=== PATIENT | female | born 1950 ===

== ENCOUNTER 2021-11-26 05:54 | Inpatient (IN) | payer MEDICARE ==
[2021-11-26] VITALS (7 sets, daily range): BP systolic 97–116; BP diastolic 52–78
[~2021-11-26] VITALS: Ht 152.4 cm; Wt 74.5 kg
[2021-11-26 07:06] LABS: BASO % 0.3 % (0.0-1.0); EOS # 0.1 10*3/uL (0.0-0.4); EOS % 1.6 % (1.0-4.0); HEMATOCRIT 45.6 % (37.0-47.0); LYMPH % 16.6 % (27.0-41.0); MEAN CELL VOLUME 94.2 fl (81.0-99.0); MEAN CORPUSCULAR HGB 31.4 pg (27.0-31.0); MEAN CORPUSCULAR HGB CONC 33.3 g/dl (33.0-37.0); MEAN PLATELET VOLUME 9.8 fl (9.6-12.3); MONO # 0.3 10*3/uL (0.1-1.0); MONO % 4.6 % (3.0-9.0); NEUT # 4.8 10*3/uL (2.3-7.9); NEUT % 76.7 % (47.0-73.0); PLATELET COUNT AUTOMATED 278 10*3/uL (130-400); RED BLOOD COUNT 4.84 10*6/uL (4.10-5.10); RED CELL DISTRI WIDTH 14.1 % (0-14.5); WHITE BLOOD COUNT 6.3 10*3/uL (4.8-10.8)
[2021-11-26 07:36] LABS: ALKALINE PHOSPHATASE 53 U/L (45-117); BUN 29 mg/dl (7-24); CHLORIDE 107 mmol/L (98-107); CREATININE 0.77 mg/dL (0.55-1.02); POTASSIUM 3.7 mmol/L (3.5-5.1); SGOT/AST 18 IU/L (3-35); SGPT/ALT 21 U/L (12-78); SODIUM 142 mmol/L (136-145); TOTAL PROTEIN 7.2 gm/dL (6.4-8.2)
[2021-11-26 08:01] LABS: BILIRUBIN Negative (Negative); BLOOD 3+ (Negative); CLARITY Turbid (Clear); COLOR Dark Yellow (Yellow); GLUCOSE Negative (Negative); KETONE 1+ (Negative); LEUKO ESTERASE 3+ (Negative); NITRITE Positive (Negative); SPECIFIC GRAVITY 1.025 (1.001-1.030)
[2021-11-26 08:07] LABS: WBC TNTC wbc/hpf (0-5)
[2021-11-26] MEDS ORDERED: ANALPRAM HC 2.5%4 GM T (10:28)
[2021-11-26] MEDS ORDERED: ANTI FUNGAL T (10:31)
[2021-11-26] MEDS ORDERED: ANUSOL-HC25 MG R (10:31)
[2021-11-26] MEDS ORDERED: BENGAY GREASELE57 GM T (10:32)
[2021-11-26] MEDS ORDERED: [UNRECOGNIZED DRUG - OTHER] PO (10:34)
[2021-11-26] MEDS ORDERED: SORE THROAT 17177 ML MM (10:35)
[2021-11-26] MEDS ORDERED: DEPAKOTE500 M1 PO (10:37)
[2021-11-26] MEDS ORDERED: DITROPAN XL5 MG PO (10:38)
[2021-11-26] MEDS ORDERED: DULCOLAX STOOL100 M1 PO (10:39)
[2021-11-26] MEDS ORDERED: HYDR25T PO (10:43)
[2021-11-26] MEDS ORDERED: IMODIUM A-D2 M2 PO (10:44)
[2021-11-26] MEDS ORDERED: PROTONIX TR40 MG PO (10:45)
[2021-11-26] MEDS ORDERED: SYNTHROID,LEV112 MCG PO (10:46)
[2021-11-27] VITALS: BP 104/59
[2021-11-27 06:43] LABS: BASO % 0.2 % (0.0-1.0); EOS # 0.1 10*3/uL (0.0-0.4); EOS % 2.8 % (1.0-4.0); HEMATOCRIT 40.3 % (37.0-47.0); LYMPH # 1.4 10*3/uL (1.3-4.4); LYMPH % 32.4 % (27.0-41.0); MEAN CELL VOLUME 95.5 fl (81.0-99.0); MEAN CORPUSCULAR HGB 31.8 pg (27.0-31.0); MEAN CORPUSCULAR HGB CONC 33.3 g/dl (33.0-37.0); MEAN PLATELET VOLUME 10.4 fl (9.6-12.3); MONO # 0.2 10*3/uL (0.1-1.0); MONO % 5.7 % (3.0-9.0); NEUT # 2.5 10*3/uL (2.3-7.9); NEUT % 58.9 % (47.0-73.0); PLATELET COUNT AUTOMATED 246 10*3/uL (130-400); RED BLOOD COUNT 4.22 10*6/uL (4.10-5.10); RED CELL DISTRI WIDTH 14.5 % (0-14.5); WHITE BLOOD COUNT 4.2 10*3/uL (4.8-10.8)
[2021-11-27 06:54] LABS: BUN 31 mg/dl (7-24); CHLORIDE 115 mmol/L (98-107); CREATININE 0.93 mg/dL (0.55-1.02); FREE T4 1.47 ng/dl (0.76-1.46); POTASSIUM 3.9 mmol/L (3.5-5.1); SODIUM 145 mmol/L (136-145)
[2021-11-27 07:00] LABS: THYROID STIM HORMONE (HS) 0.171 uIU/ml (0.358-4.75)
[2021-11-27 08:00] VITALS: BP 90/50
[2021-11-27 12:00] VITALS: BP 95/65
[2021-11-27 16:00] VITALS: BP 111/68
[2021-11-27 20:00] VITALS: BP 103/67
[2021-11-28] VITALS: BP 112/48
[2021-11-28 05:23] LABS: BUN 24 mg/dl (7-24); CHLORIDE 111 mmol/L (98-107); CREATININE 0.89 mg/dL (0.55-1.02); POTASSIUM 3.6 mmol/L (3.5-5.1); SODIUM 144 mmol/L (136-145)
[2021-11-28 05:24] LABS: BASO % 0.5 % (0.0-1.0); EOS # 0.1 10*3/uL (0.0-0.4); EOS % 2.5 % (1.0-4.0); HEMATOCRIT 40.9 % (37.0-47.0); LYMPH # 0.5 10*3/uL (1.3-4.4); MEAN CELL VOLUME 96.9 fl (81.0-99.0); MEAN CORPUSCULAR HGB 31.5 pg (27.0-31.0); MEAN CORPUSCULAR HGB CONC 32.5 g/dl (33.0-37.0); MEAN PLATELET VOLUME 10.4 fl (9.6-12.3); MONO # 0.3 10*3/uL (0.1-1.0); MONO % 6.3 % (3.0-9.0); NEUT # 3.5 10*3/uL (2.3-7.9); PLATELET COUNT AUTOMATED 234 10*3/uL (130-400); RED BLOOD COUNT 4.22 10*6/uL (4.10-5.10); RED CELL DISTRI WIDTH 14.6 % (0-14.5); WHITE BLOOD COUNT 4.4 10*3/uL (4.8-10.8)
[2021-11-28 08:00] VITALS: BP 106/46
[2021-11-28 12:00] VITALS: BP 114/67
[2021-11-28 16:00] VITALS: BP 127/62
[2021-11-28 20:00] VITALS: BP 130/67
[2021-11-29] VITALS: BP 126/73
[2021-11-29 06:05] LABS: BUN 16 mg/dl (7-24); CHLORIDE 109 mmol/L (98-107); CREATININE 0.83 mg/dL (0.55-1.02); POTASSIUM 3.5 mmol/L (3.5-5.1); SODIUM 144 mmol/L (136-145)
[2021-11-29 06:18] LABS: BASO % 0.7 % (0.0-1.0); EOS # 0.2 10*3/uL (0.0-0.4); EOS % 4.5 % (1.0-4.0); HEMATOCRIT 42.7 % (37.0-47.0); LYMPH % 22.8 % (27.0-41.0); MEAN CELL VOLUME 96.4 fl (81.0-99.0); MEAN CORPUSCULAR HGB 31.6 pg (27.0-31.0); MEAN CORPUSCULAR HGB CONC 32.8 g/dl (33.0-37.0); MEAN PLATELET VOLUME 10.3 fl (9.6-12.3); MONO # 0.5 10*3/uL (0.1-1.0); MONO % 11.2 % (3.0-9.0); NEUT # 2.7 10*3/uL (2.3-7.9); NEUT % 60.4 % (47.0-73.0); PLATELET COUNT AUTOMATED 208 10*3/uL (130-400); RED BLOOD COUNT 4.43 10*6/uL (4.10-5.10); RED CELL DISTRI WIDTH 14.5 % (0-14.5); WHITE BLOOD COUNT 4.5 10*3/uL (4.8-10.8)
[2021-11-29 08:30] VITALS: BP 121/63
[2021-11-29 12:00] VITALS: BP 93/63
[2021-11-29 16:00] VITALS: BP 109/93
[2021-11-29 20:00] VITALS: BP 102/79
[2021-11-30] VITALS: BP 131/71
[2021-11-30 08:00] VITALS: BP 120/68
[2021-11-30] MEDS ORDERED: OXYBUTYNIN5 MG PO (11:52)
[2021-11-30] MEDS ORDERED: AUGMENTIN 875-875 MG PO (11:54)
[2021-11-30 12:00] VITALS: BP 188/70
[2021-11-30 15:22] VITALS: BP 130/70
== END 2021-11-30 14:50 | DRG 689 ==
LOC: ED 05:54 → EDHOLD 09:11 → 5E 09:11 → EDHOLD 09:21 → 5E 09:51
PROVIDERS: Emergency Medicine; Internal Medicine; ADMIT Internal Medicine; ATTEND Internal Medicine
DX: N30.01 Acute cystitis with hematuria (principal); G93.41 Metabolic encephalopathy; E44.0 Moderate protein-calorie malnutrition; F42.9 Obsessive-compulsive disorder, unspecified; G40.909 Epilepsy, unspecified, not intractable, without status epilepticus; Z20.822 Contact with and (suspected) exposure to COVID-19; Z66 Do not resuscitate; Z51.5 Encounter for palliative care; R00.1 Bradycardia, unspecified; E03.9 Hypothyroidism, unspecified; I10 Essential (primary) hypertension; D64.9 Anemia, unspecified; I48.91 Unspecified atrial fibrillation; B96.20 Unspecified Escherichia coli [E. coli] as the cause of diseases classified elsewhere; B95.2 Enterococcus as the cause of diseases classified elsewhere; Z90.710 Acquired absence of both cervix and uterus; Z79.899 Other long term (current) drug therapy; Z68.32 Body mass index [BMI] 32.0-32.9, adult

== ENCOUNTER 2022-02-17 12:38 | Emergency (ER) | payer MEDICARE ==
[~2022-02-17 12:38] MED LIST: ANALPRAM HC 2.5%4 GM T; ANTI FUNGAL T; ANUSOL-HC25 MG R; AUGMENTIN 875-875 MG PO; BENGAY GREASELE57 GM T; DEPAKOTE500 M1 PO; DITROPAN XL5 MG PO; DULCOLAX STOOL100 M1 PO; HYDR25T PO; IMODIUM A-D2 M2 PO; OXYBUTYNIN5 MG PO; PROTONIX TR40 MG PO; SORE THROAT 17177 ML MM; SYNTHROID,LEV112 MCG PO; [UNRECOGNIZED DRUG - OTHER] PO
[2022-02-17 13:13] LABS: BASO % 0.6 % (0.0-1.0); EOS # 0.2 10*3/uL (0.0-0.4); EOS % 3.5 % (1.0-4.0); HEMATOCRIT 42.9 % (37.0-47.0); LYMPH # 1.7 10*3/uL (1.3-4.4); LYMPH % 25.3 % (27.0-41.0); MEAN CELL VOLUME 92.3 fl (81.0-99.0); MEAN CORPUSCULAR HGB 30.8 pg (27.0-31.0); MEAN CORPUSCULAR HGB CONC 33.3 g/dl (33.0-37.0); MONO # 0.8 10*3/uL (0.1-1.0); NEUT # 3.9 10*3/uL (2.3-7.9); NEUT % 58.3 % (47.0-73.0); PLATELET COUNT AUTOMATED 257 10*3/uL (130-400); RED BLOOD COUNT 4.65 10*6/uL (4.10-5.10); RED CELL DISTRI WIDTH 14.2 % (0-14.5); WHITE BLOOD COUNT 6.7 10*3/uL (4.8-10.8)
[2022-02-17 13:32] LABS: BUN 28 mg/dl (7-24); CHLORIDE 104 mmol/L (98-107); POTASSIUM 3.8 mmol/L (3.5-5.1); SGOT/AST 17 IU/L (3-35); SGPT/ALT 17 U/L (12-78); SODIUM 138 mmol/L (136-145)
[2022-02-17 13:34] LABS: ALKALINE PHOSPHATASE 67 U/L (45-117); TOTAL PROTEIN 7.1 gm/dL (6.4-8.2)
== END 2022-02-17 21:06 ==
LOC: ED 12:38
PROVIDERS: Physician Assistant
DX: R56.9 Unspecified convulsions (principal); K21.9 Gastro-esophageal reflux disease without esophagitis; I10 Essential (primary) hypertension

== ENCOUNTER 2022-05-20 19:05 | Inpatient (IN) | payer OTHER ==
[2022-05-20] VITALS (7 sets, daily range): BP systolic 48–100; BP diastolic 0–52
[~2022-05-20] VITALS: Ht 165.1 cm; Wt 68.0 kg
[2022-05-20 20:18] LABS: BASO % 0.3 % (0.0-1.0); EOS # 0.1 10*3/uL (0.0-0.4); EOS % 1.6 % (1.0-4.0); HEMATOCRIT 41.5 % (37.0-47.0); LYMPH # 0.7 10*3/uL (1.3-4.4); LYMPH % 10.8 % (27.0-41.0); MEAN CELL VOLUME 92.6 fl (81.0-99.0); MEAN CORPUSCULAR HGB 31.3 pg (27.0-31.0); MEAN CORPUSCULAR HGB CONC 33.7 g/dl (33.0-37.0); MEAN PLATELET VOLUME 11.4 fl (9.6-12.3); MONO # 0.5 10*3/uL (0.1-1.0); MONO % 8.4 % (3.0-9.0); NEUT # 5.1 10*3/uL (2.3-7.9); NEUT % 78.7 % (47.0-73.0); PLATELET COUNT AUTOMATED 107 10*3/uL (130-400); RED BLOOD COUNT 4.48 10*6/uL (4.10-5.10); RED CELL DISTRI WIDTH 14.6 % (0-14.5); WHITE BLOOD COUNT 6.4 10*3/uL (4.8-10.8)
[2022-05-20 20:32] LABS: CREATININE 1.41 mg/dL (0.55-1.02); POTASSIUM 4.3 mmol/L (3.5-5.1); TOTAL PROTEIN 7.1 gm/dL (6.4-8.2)
[2022-05-20 20:33] LABS: VALPROIC ACID (DEPAKENE) 47.9 ug/ml (50-100)
[2022-05-20 20:40] LABS: THYROID STIM HORMONE (HS) 0.229 uIU/ml (0.358-4.75)
[2022-05-20 21:52] LABS: BILIRUBIN Negative (Negative); BLOOD Negative (Negative); CLARITY Cloudy (Clear); COLOR Yellow (Yellow); GLUCOSE Negative (Negative); KETONE Trace (Negative); LEUKO ESTERASE 1+ (Negative); NITRITE Negative (Negative); PH 5.5 (4.5-8.0); UROBILINOGEN 0.2 E.U./dl (0.0-1.0)
[2022-05-20 22:09] LABS: BACTERIA 4+; EPITHELIAL CELLS TNTC
[2022-05-21] VITALS (13 sets, daily range): BP systolic 72–125; BP diastolic 33–66
[2022-05-21] MEDS ORDERED: ATIVAN2 MG/1 ML IM (04:10)
[2022-05-21] MEDS ORDERED: CALCIUM +D & M1 EACH PO (04:11)
[2022-05-21] MEDS ORDERED: DEPAKOTE250 MG PO (04:12)
[2022-05-21] MEDS ORDERED: HYDROCHLOROTH12.5 M2 PO (04:13)
[2022-05-21] MEDS ORDERED: KEPPRA500 MG PO (04:14)
[2022-05-21] MEDS ORDERED: OXYBUTYNIN5 MG PO (04:15)
[2022-05-21] MEDS ORDERED: MIRALAX17 GM PO (04:15)
[2022-05-21] MEDS ORDERED: PROTONIX40 MG PO (04:16)
[2022-05-21] MEDS ORDERED: REMERON15 M2 PO (04:16)
[2022-05-21] MEDS ORDERED: SYNTHROID,LEV112 MCG PO (04:17)
[2022-05-21] MEDS ORDERED: VITAMIN D31 ML MC (04:21)
[2022-05-21 05:50] LABS: ALKALINE PHOSPHATASE 57 U/L (45-117); BUN 38 mg/dl (7-24); CHLORIDE 115 mmol/L (98-107); CHOLESTEROL 148 mg/dL (<200); CREATININE 0.95 mg/dL (0.55-1.02); LDL CHOLESTEROL 65 mg/dL (9-159); POTASSIUM 4.1 mmol/L (3.5-5.1); SGOT/AST 17 IU/L (3-35); SGPT/ALT 23 U/L (12-78); SODIUM 145 mmol/L (136-145); TOTAL PROTEIN 6.1 gm/dL (6.4-8.2); TRIGLYCERIDES 111 mg/dl (<150)
[2022-05-21 06:15] LABS: BASO % 0.2 % (0.0-1.0); EOS # 0.1 10*3/uL (0.0-0.4); EOS % 2.4 % (1.0-4.0); LYMPH # 1.2 10*3/uL (1.3-4.4); LYMPH % 25.7 % (27.0-41.0); MEAN CELL VOLUME 95.5 fl (81.0-99.0); MEAN CORPUSCULAR HGB 31.3 pg (27.0-31.0); MEAN CORPUSCULAR HGB CONC 32.8 g/dl (33.0-37.0); MEAN PLATELET VOLUME 11.9 fl (9.6-12.3); MONO # 0.6 10*3/uL (0.1-1.0); MONO % 13.8 % (3.0-9.0); NEUT # 2.6 10*3/uL (2.3-7.9); NEUT % 57.7 % (47.0-73.0); PLATELET COUNT AUTOMATED 86 10*3/uL (130-400); RED BLOOD COUNT 4.19 10*6/uL (4.10-5.10); RED CELL DISTRI WIDTH 14.9 % (0-14.5); WHITE BLOOD COUNT 4.6 10*3/uL (4.8-10.8)
[2022-05-22] VITALS: BP 94/50
[2022-05-22 04:00] VITALS: BP 108/55
[2022-05-22 05:47] LABS: BUN 29 mg/dl (7-24); CHLORIDE 110 mmol/L (98-107); CREATININE 1.01 mg/dL (0.55-1.02); POTASSIUM 3.9 mmol/L (3.5-5.1); SODIUM 144 mmol/L (136-145)
[2022-05-22 06:16] LABS: BASO % 0.1 % (0.0-1.0); EOS # 0.1 10*3/uL (0.0-0.4); EOS % 0.9 % (1.0-4.0); HEMATOCRIT 39.9 % (37.0-47.0); LYMPH # 0.9 10*3/uL (1.3-4.4); LYMPH % 13.3 % (27.0-41.0); MEAN CORPUSCULAR HGB 30.8 pg (27.0-31.0); MEAN CORPUSCULAR HGB CONC 33.1 g/dl (33.0-37.0); MEAN PLATELET VOLUME 11.4 fl (9.6-12.3); MONO # 0.9 10*3/uL (0.1-1.0); MONO % 13.5 % (3.0-9.0); NEUT # 4.9 10*3/uL (2.3-7.9); NEUT % 71.9 % (47.0-73.0); PLATELET COUNT AUTOMATED 96 10*3/uL (130-400); RED BLOOD COUNT 4.29 10*6/uL (4.10-5.10); RED CELL DISTRI WIDTH 14.8 % (0-14.5); WHITE BLOOD COUNT 6.8 10*3/uL (4.8-10.8)
[2022-05-22 06:36] LABS: VALPROIC ACID (DEPAKENE) 25.6 ug/ml (50-100)
[2022-05-22 08:00] VITALS: BP 126/67
[2022-05-22 12:00] VITALS: BP 131/77
[2022-05-22 16:00] VITALS: BP 104/54
[2022-05-22 20:00] VITALS: BP 118/66
[2022-05-23] VITALS: BP 96/65
[2022-05-23 05:48] LABS: CHLORIDE 111 mmol/L (98-107); CREATININE 0.69 mg/dL (0.55-1.02); POTASSIUM 3.7 mmol/L (3.5-5.1); SODIUM 145 mmol/L (136-145)
[2022-05-23 05:51] LABS: BUN 14 mg/dl (7-24)
[2022-05-23 06:26] LABS: BASO % 0.5 % (0.0-1.0); EOS # 0.1 10*3/uL (0.0-0.4); EOS % 1.8 % (1.0-4.0); HEMATOCRIT 39.7 % (37.0-47.0); LYMPH % 25.4 % (27.0-41.0); MEAN CELL VOLUME 91.3 fl (81.0-99.0); MEAN PLATELET VOLUME 11.6 fl (9.6-12.3); MONO # 0.6 10*3/uL (0.1-1.0); MONO % 16.2 % (3.0-9.0); NEUT # 2.2 10*3/uL (2.3-7.9); NEUT % 55.8 % (47.0-73.0); PLATELET COUNT AUTOMATED 96 10*3/uL (130-400); RED BLOOD COUNT 4.35 10*6/uL (4.10-5.10); RED CELL DISTRI WIDTH 14.6 % (0-14.5); WHITE BLOOD COUNT 3.9 10*3/uL (4.8-10.8)
[2022-05-23 08:00] VITALS: BP 149/77
[2022-05-23 12:00] VITALS: BP 101/59
[2022-05-23 16:00] VITALS: BP 109/63
[2022-05-23 20:00] VITALS: BP 104/54
[2022-05-24] VITALS: BP 118/78; BP 118/90
[2022-05-24 07:08] LABS: BASO % 0.3 % (0.0-1.0); EOS # 0.1 10*3/uL (0.0-0.4); EOS % 1.1 % (1.0-4.0); HEMATOCRIT 38.9 % (37.0-47.0); LYMPH # 1.1 10*3/uL (1.3-4.4); LYMPH % 17.5 % (27.0-41.0); MEAN CORPUSCULAR HGB 31.2 pg (27.0-31.0); MEAN CORPUSCULAR HGB CONC 33.9 g/dl (33.0-37.0); MEAN PLATELET VOLUME 11.4 fl (9.6-12.3); MONO % 15.4 % (3.0-9.0); NEUT # 4.3 10*3/uL (2.3-7.9); NEUT % 65.5 % (47.0-73.0); PLATELET COUNT AUTOMATED 88 10*3/uL (130-400); RED BLOOD COUNT 4.23 10*6/uL (4.10-5.10); RED CELL DISTRI WIDTH 14.7 % (0-14.5); WHITE BLOOD COUNT 6.5 10*3/uL (4.8-10.8)
[2022-05-24 07:34] LABS: BUN 9 mg/dl (7-24); CHLORIDE 112 mmol/L (98-107); CREATININE 0.63 mg/dL (0.55-1.02); POTASSIUM 3.6 mmol/L (3.5-5.1); SODIUM 141 mmol/L (136-145)
[2022-05-24 07:42] LABS: VALPROIC ACID (DEPAKENE) 70.4 ug/ml (50-100)
[2022-05-24 08:00] VITALS: BP 130/78; BP 182/80
[2022-05-24 12:00] VITALS: BP 121/73
[2022-05-24] MEDS ORDERED: DIVALPROEX SOD125 M1 PO (12:53)
[2022-05-24 16:00] VITALS: BP 127/70
[2022-05-24 20:00] VITALS: BP 122/68
[2022-05-25] VITALS: BP 98/64
[2022-05-25 03:50] VITALS: BP 97/57
[2022-05-25 06:02] LABS: BUN 8 mg/dl (7-24); CHLORIDE 112 mmol/L (98-107); CREATININE 0.67 mg/dL (0.55-1.02); POTASSIUM 4.2 mmol/L (3.5-5.1); SODIUM 140 mmol/L (136-145)
[2022-05-25 06:51] LABS: BASO % 0.2 % (0.0-1.0); EOS # 0.1 10*3/uL (0.0-0.4); EOS % 1.8 % (1.0-4.0); HEMATOCRIT 38.6 % (37.0-47.0); LYMPH # 0.8 10*3/uL (1.3-4.4); LYMPH % 16.5 % (27.0-41.0); MEAN CORPUSCULAR HGB 30.8 pg (27.0-31.0); MEAN CORPUSCULAR HGB CONC 32.1 g/dl (33.0-37.0); MEAN PLATELET VOLUME 11.8 fl (9.6-12.3); MONO % 19.1 % (3.0-9.0); NEUT # 3.1 10*3/uL (2.3-7.9); NEUT % 62.2 % (47.0-73.0); PLATELET COUNT AUTOMATED 78 10*3/uL (130-400); RED BLOOD COUNT 4.02 10*6/uL (4.10-5.10); RED CELL DISTRI WIDTH 15.2 % (0-14.5)
[2022-05-25 08:00] VITALS: BP 112/66
[2022-05-25 12:00] VITALS: BP 109/67
[2022-05-25 16:00] VITALS: BP 119/61
[2022-05-25 20:00] VITALS: BP 108/62
[2022-05-26] VITALS: BP 115/54
[2022-05-26 04:00] VITALS: BP 126/61
[2022-05-26 08:00] VITALS: BP 120/80
[2022-05-26 12:00] VITALS: BP 124/76
[2022-05-26] MEDS ORDERED: MORPHINE S20 MG/5 ML PO (12:02)
[2022-05-26] MEDS ORDERED: ATIVAN ORAL C2 MG/ML PO (12:02)
== END 2022-05-26 14:25 | disposition hospice, home (50) | DRG 100 ==
LOC: ED 19:05 → 5E 05-21 03:01 → EDHOLD 05-21 03:01 → 5E 05-21 05:08
PROVIDERS: Emergency Medicine; Internal Medicine; Student in an Organized Health Care Education/Training Program; ADMIT Family Medicine; ATTEND Family Medicine
DX: G40.909 Epilepsy, unspecified, not intractable, without status epilepticus (principal); E43 Unspecified severe protein-calorie malnutrition; N17.0 Acute kidney failure with tubular necrosis; N39.0 Urinary tract infection, site not specified; Z20.822 Contact with and (suspected) exposure to COVID-19; Z66 Do not resuscitate; Z51.5 Encounter for palliative care; R00.1 Bradycardia, unspecified; E03.9 Hypothyroidism, unspecified; D69.6 Thrombocytopenia, unspecified; D72.819 Decreased white blood cell count, unspecified; E16.2 Hypoglycemia, unspecified; E78.5 Hyperlipidemia, unspecified; N18.30 Chronic kidney disease, stage 3 unspecified; I12.9 Hypertensive chronic kidney disease with stage 1 through stage 4 chronic kidney disease, or unspecified chronic kidney disease; F42.9 Obsessive-compulsive disorder, unspecified; Z68.24 Body mass index [BMI] 24.0-24.9, adult; Z90.710 Acquired absence of both cervix and uterus; Z79.899 Other long term (current) drug therapy